=== PATIENT | male | born 1970 | race Caucasian/White ===

== ENCOUNTER 2016-12-15 14:02 | Day surgery (SDC) | payer OTHER ==
[~2016-12-15 14:02] MED LIST: HYDROCODONE/APAP 5/325 TAB PO SCH; OXYCODONE/APAP 5/325 TAB PO SCH
[2016-12-15] MEDS ORDERED: ONDANSETRON 4 MG/2 ML VIAL IVP ONE (15:28)
[2016-12-15] MEDS ORDERED: NS 1,000 ML IV ONE (15:28)
[2016-12-15] MEDS ORDERED: HYDROmorphONE/DILAUDID 1 MG/ML SYR IVP ONE (15:28)
--- NOTE | 2016-12-15 15:28 | UCPHY ---
H & P Time Seen by Provider: 12/15/16 15:05 Patient Type: Established HPI/ROS: HPI Rectal pain. 46-year-old male by private vehicle. This patient reports he has a history of a hemorrhoide[place] [address] Raúl Barnett. He reports that about a week and half ago he developed a viral or food-borne gastroenteritis. He had multiple episodes of vomiting and diarrhea. He states that about 4 days into this illness with multiple trips to the bathroom he started noticing a fullness on the left side of his rectum. He reports that his gastroenteritis resolved but the fullness and pain to the left side of his rectum have increased significantly over the last 4 days. No fever. He denies any gross blood per rectum. He reports the pain is much worse with bowel movements. Last meal was last night at 8:30 p.m.. Last oral intake was some water at about 10:00 a.m.. ROS: Constitutional: No fever, no chills. No weakness. Eyes: No discharge. No changes in vision. ENT: No sore throat. No nasal congestion or rhinorrhea. Respiratory: No cough. No shortness of breath. Cardiac: No chest pain, no palpitations. Gastrointestinal: No abdominal pain, no vomiting, no diarrhea. As above. Genitourinary: No hematuria. No dysuria or increased frequency with urination. As above. Musculoskeletal: No back pain. No neck pain. No myalgias or arthralgias. Skin: No rashes. Neurological: No headache. No focal weakness or altered sensation. Past medical history: Diverticulitis, hemorrhoidectomy as above, left ACL surgery, depression. Social history: He is here with his friend. Nonsmoker. As above. Physical Exam: General Appearance: Alert, anxious, appears uncomfortable. This patient is responding to questions appropriately and in full sentences. This patient appears well-hydrated and well-nourished. Eyes: Pupils equal and round no pallor or injection. No lid edema, erythema or injection. Respiratory: There are no retractions, lungs are clear to auscultation with good air movement bilaterally. Cardiovascular: Regular rate and rhythm. No murmur. Gastrointestinal: Abdomen is soft and nontender, no masses, bowel sounds normal. No focal tenderness at McBurney's point. No Mayo sign. Rectal exam: Palpable perianal swelling which is very tender and is most pronounced at the 10 o'clock position perianal, no fluctuance. Palpable fullness tracks superiorly and anteriorly. No rectal fissures. Neurological: Motor sensory function is grossly intact. Cranial nerves are normal. Gait is normal. Skin: Warm and dry, no rashes. Musculoskeletal: Neck is supple and nontender. Extremities are symmetrical. All joints range without pain or impingement. Psychiatric: No agitation. No depression. Database: EKG: Imaging: Procedures: Emergency department course: IV placed. Patient placed on a monitor. He was started on IV normal saline with 1 L to be given over the next hour. Has been NPO status since being at urgent care. He will be given 0.5 mg of IV hydromorphone for pain and 4 mg of IV Zofran. 3:30 p.m., spoke with on-call general surgeon, Dr. Bernie Zavala, who is partners with Dr. Raúl Barnett. She accepts this patient for transfer to the emergency department at [facility]. Plan will be to take the patient to the OR later this afternoon for incision and drainage of perirectal abscess. 3:35 p.m., spoke with Dr. Wall, emergency physician at [facility]. He is aware the patient is being transferred to [facility] emergency department and will oversee his care. 3:45 p.m., patient transferred in good condition by private vehicle with friend who is driving to [facility] emergency department. Differential Diagnosis: The differential diagnosis on this patient includes but is not limited to perirectal abscess, perianal abscess, rectal fissure, thrombosed hemorrhoid. This represents a partial list of diagnoses considered. These considerations are based on history, physical exam, past history, reassessment and diagnostic testing. Smoking Status: Never smoked Constitutional: Initial Vital Signs Temperature (C) 36.5 C 12/15/16 14:08 Heart Rate 85 12/15/16 14:08 Respiratory Rate 18 12/15/16 14:08 Blood Pressure 144/83 H 12/15/16 14:08 O2 Sat (%) 97 12/15/16 14:08 O2 Delivery Mode Room Air Allergies/Adverse Reactions: bee Allergy (Intermediate, Uncoded 12/15/16 14:13) localized swelling Home Medications: Medication Instructions Recorded Wellbutrin Xl 12/15/16 Departure - Departure Disposition: [facility] Clinical Impression: Perirectal abscess Referrals: Dinora Mascorro MD [Primary Care Provider] - As per Instructions - PQRS PQRS Measurement: Not applicable.
[2016-12-15 16:03] VITALS: TEMP 98.2
[2016-12-15 17:09] VITALS: BP 139/83; PULSE 88; O2SAT 93
[2016-12-15 17:25] VITALS: RESP 18
--- NOTE | 2016-12-15 17:27 | EDPHY ---
H & P Time Seen by Provider: 12/15/16 15:05 HPI/ROS: CHIEF COMPLAINT: Rectal pain HISTORY OF PRESENT ILLNESS: Patient is a 46-year-old male who presents to the emergency department from [facility]. He was evaluated by Dr. Todd at [facility] and transferred to the emergency department to see Dr. Lala for surgery for rectal pain/abscess. Patient states he has severe rectal pain that is ongoing. He denies fevers or chills. No abdominal pain. He was sick with a gastroenteritis approximately 1 and half weeks ago. He had multiple trips to the bathroom and then subsequently developed rectal pain. REVIEW OF SYSTEMS: My complete review of systems is negative except as mentioned in the HPI. Past Medical/Surgical History: Diverticulitis, depression Past surgical history: Includes hemorrhoidectomy, ACL surgery Social history: Patient does not smoke. Smoking Status: Never smoked Physical Exam: Vitals noted GENERAL: Well-appearing, in no acute distress, alert. HEENT: Eyes normal to inspection, normal. NECK: Normal, supple. RESPIRATORY: Clear to auscultation bilaterally, no rales, rhonchi or wheezing. CVS: Regular rate and rhythm, no rubs, murmurs, or gallops. ABDOMEN: Soft, nontender, nondistended, no organomegaly. Rectal: Deferred. Dr. Todd did the exam at [facility] I spoke with him on the phone. BACK: Normal to inspection, no CVA tenderness. SKIN: Normal color, no rash, warm, dry. No pallor. EXTREMITIES: No pedal edema, no calf tenderness, no Homans sign or cords, no joint swelling. NEURO/PSYCH: Alert and oriented, normal mood and affect. Constitutional: Initial Vital Signs Temperature (C) 36.5 C 12/15/16 14:08 Heart Rate 85 12/15/16 14:08 Respiratory Rate 18 12/15/16 14:08 Blood Pressure 144/83 H 12/15/16 14:08 O2 Sat (%) 97 12/15/16 14:08 O2 Delivery Mode Room Air Allergies/Adverse Reactions: bee Allergy (Intermediate, Uncoded 12/15/16 14:13) localized swelling Home Medications: Medication Instructions Recorded Wellbutrin Xl 12/15/16 Medical Decision Making ED Course/Re-evaluation: In the emergency department I met patient and discussed the plan. I answered all his questions. Patient will be transferred to the OR for treatment and evaluation by Dr. Lala. The patient is aware the plan. Differential Diagnosis: My differential includes but is not limited to rectal abscess, rectal fissure, hemorrhoid, thrombosed hemorrhoid, bacteremia, sepsis, malignancy, mass - Data Points Medications Given: Discontinued Medications Hydromorphone HCl (Dilaudid) 1 mg IVP EDNOW ONE Stop: 12/15/16 15:29 Last Admin: 12/15/16 15:57 Dose: 0.5 mg Sodium Chloride (Ns) 1,000 mls @ 0 mls/hr IV ONCE ONE PRN Reason: Wide Open Stop: 12/15/16 15:29 Last Admin: 12/15/16 16:42 Dose: Not Given Ondansetron HCl (Zofran) 4 mg IVP EDNOW ONE Stop: 12/15/16 15:29 Last Admin: 12/15/16 15:55 Dose: 4 mg Departure - Departure Disposition: To OP Cath/Surgery Clinical Impression: Perirectal abscess Condition: Good Additional Instructions: Go to emergency at [facility] . There you will check in to Emergency department and be seen by Surgeon Dr Zavala . Do NOT eat or drink. Referrals: Dinora Mascorro MD [Primary Care Provider] - As per Instructions
[2016-12-15] MEDS ORDERED: ERTAPENEM 1 GM in NS 100 ML IV ONE ×2 (17:53→18:00)
[2016-12-15] MEDS ORDERED: MIDAZOLAM 2 MG/2 ML VIAL ONE (18:10)
[2016-12-15] MEDS ORDERED: PROPOFOL 200 MG/20 ML VIAL ONE (18:14)
[2016-12-15] MEDS ORDERED: fentaNYL 100 MCG/2 ML INJ ONE ×2 (18:14)
[2016-12-15] MEDS ORDERED: LIDOCAINE 2% 100 MG/5 ML SYR ONE (18:15)
[2016-12-15] MEDS ORDERED: KETOROLAC 30 MG/1 ML SDV ONE (18:15)
[2016-12-15] MEDS ORDERED: DEXAMETHASONE 4 MG/ML VIAL ONE ×2 (18:15)
[2016-12-15] MEDS ORDERED: METOCLOPRAMIDE 10 MG/2 ML VIAL ONE (18:15)
[2016-12-15] MEDS ORDERED: OXYCODONE/APAP 5/325 TAB ONE ×2 (19:23→20:04)
--- NOTE | 2016-12-15 19:35 | GOP ---
[f rep st] OPERATIVE REPORT DATE OF OPERATION: 12/15/2016 SURGEON: Bernie Zavala MD ANESTHESIA: Rafiq Zimmerman MD ANESTHESIOLOGIST: General. PREOPERATIVE DIAGNOSIS: Perirectal abscess. POSTOPERATIVE DIAGNOSIS: Perirectal abscess. PROCEDURE PERFORMED: Exam under anesthesia and incision and drainage of perirectal abscess. FINDINGS: Perirectal abscess, 2 x 3 x 2 cm. SPECIMENS: Microbiology. ESTIMATED BLOOD LOSS: 10 mL. INDICATIONS: The patient is a 46-year-old with history of hemorrhoidectomy many years ago. He deve loped pain in his bottom. Perirectal abscess was diagnosed. DESCRIPTION OF PROCEDURE: The patient was brought into the operating room. Placed supine on the ta ble and general anesthesia was administered. He was then placed in lithotomy position. His bottom was prepped and draped in the usual sterile fashion. I aspirated over the fluctuant area and obtain ed purulent material, which was submitted for microbiology, and made an incision over the abscess. I fully evacuated. I irrigated it with saline. I performed exam under anesthesia and anoscopy. I injected fluid into the abscess cavity and did not see any visible fistula defect. A quarter-inch P enrose was sewn into the wound with 3-0 nylon. Hemostasis was achieved. ABD, mesh pants were appli ed. He was taken out of the lithotomy position, awakened in the operating room, extubated, transfer red to PACU in stable condition. /[id number]/MODL
--- NOTE | 2016-12-16 00:36 | GHP ---
[f rep st] HISTORY AND PHYSICAL DATE OF ADMISSION: 12/15/2016 CHIEF COMPLAINT: Perirectal abscess. HISTORY OF PRESENT ILLNESS: The patient is a 46-year-old man who developed gastroenteritis. He had multiple episodes of vomiting and diarrhea. He then developed a fullness on the left side of his r ectum. His pain is increased over the past 4 days. He was seen at urgent care, and due to his phys ical exam findings, referred him for my evaluation and operative intervention. PAST MEDICAL HISTORY: Diverticulitis, depression. PAST SURGICAL HISTORY: Hemorrhoidectomy, left ACL surgery. SOCIAL HISTORY: He is a nonsmoker. FAMILY HISTORY: Noncontributory for perirectal abscess. REVIEW OF SYSTEMS: 10-point review of systems otherwise negative. PHYSICAL EXAMINATION: GENERAL: Pleasant, well-nourished, well-groomed man. VITAL SIGNS: Stable. HEENT: Normocephalic. No gross hearing deficits. Mucous membranes moist. Pupils equal and round . No scleral icterus. LUNGS: No increased work of breathing. Clear to auscultation bilaterally. CARDIAC: Regular rate. RECTAL: He has a fluctuant mass on the left side of his abdomen and it is firm posteriorly. IMPRESSION AND PLAN: The patient is a 46-year-old with a perirectal abscess. I will take him to [facility] operating room for exam under anesthesia and incision and drainage of the abscess. He understands that there is a fistula and I will take care that. The risks and benefits, including, but not limi won to, stroke, heart attack, , blood clots, infection, bleeding, need for additional procedure s, were all discussed. He had his questions answered to his satisfaction and signed the informed co nsent. /[id number]/MODL
== END 2016-12-15 20:15 | disposition home or self-care (01) ==
LOC: CED 14:02 → FSGY 18:09
PROVIDERS: ATTEND Surgery
PROC: 0D9P30Z Drainage of Rectum with Drainage Device, Percutaneous Approach (ICD-10-PCS; principal; 2016-12-15 18:15)
DX: K61.1 Rectal abscess (principal)
CPT/HCPCS: 96374; 96374-PO; 96375-PO; G0463-PO; J1100; J1170; J1335; J1885; J2001; J2250; J2405; J2704; J2765; J3010

== ENCOUNTER 2016-12-19 01:18 | Emergency (ER) | payer OTHER ==
[2016-12-19 01:24] VITALS: TEMP 98.6
--- NOTE | 2016-12-19 01:57 | EDPHY ---
H & P Stated Complaint: ABD PAIN, THINKS DIVORTICULITIS, HX OF SAME IN PAST Time Seen by Provider: 12/19/16 01:32 HPI/ROS: Chief complaint: Abdominal pain HPI: 46-year-old male who is status post drainage of perirectal abscess [address] Bernie Zavala. Patient was sent home with Percocet and on Augmentin. States he has not taken any persistent for 3 days but is continuing to take the Augmentin as prescribed. Yesterday morning about 11 o'clock he started having some left-sided abdominal pain which felt like he "had spicy food going through him". The pain settled in the left side in the left upper and more in the left lower quadrant. He states this feels similar to prior bouts of diverticulitis he has had the past. He does not feel constipated. He has had several loose small bowel movements throughout the day. No fevers or chills. Some nausea but no vomiting. Does have some pain when he passes a bowel movement but for the most part his perirectal area feels okay. Patient states that his current abdominal pain is about a 7/10. ROS: 10 point Review of Systems is negative except as noted in the HPI. Past medical history: Hemorrhoidectomy Perirectal abscess Physical exam: Gen: Awake, Alert, No Distress HEENT: Nose: no rhinorrhea Eyes: PERRLA, EOMI Mouth: Moist mucosa Neck: Supple, no JVD Chest: nontender, lungs clear to auscultation Heart: S1, S2 normal, no murmur Abd: Soft, he has moderate tenderness no left upper left lower quadrant, no guarding Back: no CVA tenderness, no midline tenderness Ext: no edema, non-tender Skin: no rash Neuro: CN II-XII intact, Sensation grossly intact, Strength 5/5 in bilateral upper and lower extremities - Personal History Current Tetanus/Diphtheria Vaccine: Yes Current Tetanus Diphtheria and Acellular Pertussis (TDAP): Yes Tetanus Vaccine Date: within 10 years - Medical/Surgical History Hx Asthma: No Hx Chronic Respiratory Disease: No Hx Diabetes: No Hx Cardiac Disease: No Hx Renal Disease: No Hx Cirrhosis: No Hx Alcoholism: No Hx HIV/AIDS: No Hx Splenectomy or Spleen Trauma: No Other PMH: Diverticulitis, surgery for hemorrhoids. left acl surg, depression - Social History Smoking Status: Never smoked Constitutional: Initial Vital Signs Temperature (C) 37.0 C 12/19/16 01:21 Heart Rate 81 12/19/16 01:21 Respiratory Rate 18 12/19/16 01:21 Blood Pressure 122/88 H 12/19/16 01:21 O2 Sat (%) 96 12/19/16 01:21 O2 Delivery Mode Room Air Allergies/Adverse Reactions: bee Allergy (Intermediate, Uncoded 12/19/16 01:24) localized swelling Home Medications: Medication Instructions Recorded Wellbutrin Xl 12/15/16 Amoxicillin/Clavulanate Pot 875 mg PO BID 12/19/16 [Augmentin 875 MG TAB (*)] oxyCODONE/APAP 5/325 [Percocet 1 tab PO 12/19/16 5/325 (*)] Medical Decision Making - Diagnostics Imaging: CT scan of the abdomen and pelvis, interpreted by Dr. Kade Gamino. There is active mild diverticulitis of the descending colon. There is a subtle change at the cecum which is difficult to characterize which he recommends evaluation with colonoscopy once a diverticulitis and the perirectal abscess have healed. ED Course/Re-evaluation: Patient has been seen by Dr. Zavala in the emergency department. She has removed the drain from the abscess site. She has not seen any signs of infection erythema. She agrees the patient does have left-sided abdominal tenderness but otherwise a soft belly. She recommends laboratory evaluations at this time. If he has any laboratory abnormalities, particularly elevated white blood cell count, then likely plan will be to proceed to CT scanning. 0240 white count is noted to be elevated. Will obtain CT scan to rule out surgical complication or other intra-abdominal process. 0322 CT scan abdomen pelvis demonstrate an active mild descending diverticulitis. Patient's pain is controlled in the emergency department. I have discussed with him the plan of treatment. He will continue the Augmentin that he has already been prescribed. He will also be take the Percocet for pain. He should follow up with Dr. Zavala in several days for re-evaluation for both his abscess healing and his diverticulitis. He will return to the emergency department for uncontrolled pain, nausea, vomiting, or any other concerns. - Data Points Laboratory Results: Laboratory Results 12/19/16 01:37 12/19/16 01:37 0312/19/16 12/19/16 01:40 01:37 01:37 WBC 14.68 10^3/uL H 10^3/uL (3.80-9.50) RBC 5.58 10^6/uL 10^6/uL (4.40-6.38) Hgb 17.0 g/dL g/dL (13.7-17.5) POC Hgb 17.0 gm/dL gm/dL (14.5-17.3) Hct 48.9 % % (40.0-51.0) POC Hct 50 % % (42.8-50.6) MCV 87.6 fL fL (81.5-99.8) MCH 30.5 pg pg (27.9-34.1) MCHC 34.8 g/dL g/dL (32.4-36.7) RDW 12.4 % % (11.5-15.2) Plt Count 258 10^3/uL 10^3/uL (150-400) MPV 9.2 fL fL (8.7-11.7) Neut % (Auto) 81.4 % H % (39.3-74.2) Lymph % (Auto) 8.9 % L % (15.0-45.0) [place] % (Auto) 8.1 % % (4.5-13.0) Eos % (Auto) 0.7 % % (0.6-7.6) Baso % (Auto) 0.5 % % (0.3-1.7) Nucleat RBC Rel Count 0.0 % % (0.0-0.2) Absolute Neuts (auto) 11.95 10^3/uL H 10^3/uL (1.70-6.50) Absolute Lymphs (auto) 1.30 10^3/uL 10^3/uL (1.00-3.00) Absolute Monos (auto) 1.19 10^3/uL H 10^3/uL (0.30-0.80) Absolute Eos (auto) 0.11 10^3/uL 10^3/uL (0.03-0.40) Absolute Basos (auto) 0.07 10^3/uL 10^3/uL (0.02-0.10) Absolute Nucleated RBC 0.00 10^3/uL 10^3/uL (0-0.01) Immature Gran % 0.4 % % (0.0-1.1) Immature Gran # 0.06 10^3/uL 10^3/uL (0.00-0.10) POC Sodium 137 mEq/L mEq/L (134-144) Sodium 135 mEq/L mEq/L (134-144) POC Potassium 4.0 mEq/L mEq/L (3.3-5.0) Potassium 4.4 mEq/L mEq/L (3.5-5.2) POC Chloride 98 mEq/L mEq/L (96-108) Chloride 99 mEq/L mEq/L (97-110) Carbon Dioxide 24 mEq/l mEq/l (22-31) Anion Gap 12 mEq/L mEq/L (8-16) POC BUN 14 mg/dL mg/dL (7-23) BUN 14 mg/dL mg/dL (7-23) Creatinine 0.9 mg/dL mg/dL (0.7-1.3) POC Creatinine 0.9 mg/dL mg/dL (0.8-1.5) Estimated GFR > 60 Glucose 98 mg/dL mg/dL (70-100) POC Glucose 102 mg/dL H mg/dL (70-100) Calcium 9.3 mg/dL mg/dL (8.5-10.4) Medications Given: Discontinued Medications Fentanyl (Sublimaze) 50 mcg IVP EDNOW ONE Stop: 12/19/16 02:02 Last Admin: 12/19/16 02:07 Dose: 50 mcg Point of Care Test Results: 12/19/16 01:40 POC Sodium 137 POC Potassium 4.0 POC Chloride 98 POC BUN 14 POC Creatinine 0.9 POC Glucose 102 H Departure - Departure Disposition: Home, Routine, Self-Care Clinical Impression: Diverticulitis Condition: Good Instructions: Diverticulitis (ED), Diverticulitis Diet (ED) Additional Instructions: Follow with Dr. Bernie Zavala in 2-3 days for re-evaluation. Continue taking her Augmentin and your Percocet as needed for pain. Return to the emergency department for worsening pain, fevers, chills, nausea, vomiting, dehydration, or any other concerns. Referrals: Dinora Mascorro MD [Primary Care Provider] - As per Instructions Bernie Zavala MD [Medical Doctor] - As per Instructions
[2016-12-19] MEDS ORDERED: fentaNYL 100 MCG/2 ML INJ IVP ONE (02:01)
[2016-12-19 02:35] LABS: % IMMATURE GRANULYOCYTES 0.4 % (0.0-1.1); ABSOLUTE IMMATURE GRANULOCYTES 0.06 10^3/uL (0.00-0.10); ADD DIFF? NO; ADD MORPH? NO; ADD SCAN? NO; ATYPICAL LYMPHOCYTE FLAG 0 (0-99); FRAGMENT RBC FLAG 0 (0-99); HEMATOCRIT 48.9 % (40.0-51.0); LEFT SHIFT FLG 0 (0-99); LIPEMIA HEMOLYSIS FLAG 90 (0-99); MEAN CELL HEMOGLOBIN 30.5 pg (27.9-34.1); MEAN CELL HEMOGLOBIN CONCENTR. 34.8 g/dL (32.4-36.7); MEAN CELL VOLUME 87.6 fL (81.5-99.8); MEAN PLATELET VOLUME 9.2 fL (8.7-11.7); PLATELET CLUMPS FLAG 10 (0-99); PLATELET COUNT 258 10^3/uL (150-400); RED BLOOD CELL COUNT 5.58 10^6/uL (4.40-6.38); RED CELL DISTRIBUTION WIDTH 12.4 % (11.5-15.2)
[2016-12-19 02:41] LABS: ANION GAP 12 mEq/L (8-16); CALCIUM 9.3 mg/dL (8.5-10.4); CARBON DIOXIDE 24 mEq/l (22-31); CHLORIDE 99 mEq/L (97-110); CREATININE 0.9 mg/dL (0.7-1.3); GLOMERULAR FILTRATION RATE > 60; GLUCOSE 98 mg/dL (70-100); POTASSIUM 4.4 mEq/L (3.5-5.2); SODIUM 135 mEq/L (134-144)
[2016-12-19] MEDS ORDERED: IOPAMIDOL (ISOVUE-300) 100 ML BTL IV ONE (02:41)
[2016-12-19 03:34] VITALS: BP 118/68; PULSE 74; RESP 16; O2SAT 98
--- NOTE | 2016-12-20 10:34 | GCON ---
[f rep st] CONSULTATION DATE OF CONSULTATION: 12/19/2016 CHIEF COMPLAINT: Abdominal pain. HISTORY OF PRESENT ILLNESS: The patient is a 46-year-old man, who I took to the operating room on M 2016, for A perirectal abscess. He had been doing well at home, but then started developin g increased abdominal pain. He has been taking Augmentin 875 mg p.o. b.i.d. I discharged him with a prescription for Percocet, which he did not fill until December 19, 2016. He then read the informati on with it and elected not to take it. His abdominal pain progressed, and so he presented to the em ergency room. It is generalized and all over. He has a history of diverticulitis, and this felt si milar to his previous attacks. Due to the pain escalating, he presented to the emergency room. PAST MEDICAL HISTORY: History of diverticulitis, depression. PAST SURGICAL HISTORY: Hemorrhoidectomy, left ACL surgery. SOCIAL HISTORY: He is a nonsmoker. FAMILY HISTORY: Noncontributory to his abdominal pain. REVIEW OF SYSTEMS: He denies fevers, chest pain, shortness of breath. He has been having multiple small bowel movements a day. He denies dysuria. Ten-point review of systems otherwise negative. PHYSICAL EXAM: VITAL SIGNS: Reviewed and stable. GENERAL: Pleasant, well-nourished, well-groomed man, friend at bedside. HEENT: Normocephalic. No gross hearing deficits. Mucous membranes moist . Pupils equal and round. No scleral icterus. LUNGS: No increased work of breathing. Clear to a uscultation bilaterally. CARDIAC: Regular rate. ABDOMEN: His bowel sounds are present. He is di ffusely tender all over his abdomen. RECTAL: The drain was sutured in place, but the Dell had s lipped out. I trimmed this. He has no signs of an infection. IMPRESSION AND PLAN: The patient is a 46-year-old man with a history of perirectal abscess. I do n ot think this is contributing to the abdominal pain. I do not think that he has suddenly developed a reaction to his antibiotics either. I am asking the emergency room to get labs on him and if elev ated, then proceed with CT scan. It is difficult to tell exactly what is going on because his abdom inal pain is so diffuse. ADDENDUM: His white count was 14,000. His abdominal CT scan showed mild diverticulitis. The emerg ency room discharged him and told him to continue his Augmentin. He will follow up with me. /[id number]/MODL
== END 2016-12-19 03:33 | disposition home or self-care (01) ==
DX: K57.92 Diverticulitis of intestine, part unspecified, without perforation or abscess without bleeding (principal)
CPT/HCPCS: 82947-QW; 96374; J3010; Q9967

== ENCOUNTER 2019-03-04 10:02 | Emergency (ER) | payer OTHER | END 2019-03-04 12:28 | disposition home or self-care (01) ==